=== PATIENT | female | born 1995 | race African-American/Black ===

== ENCOUNTER 2020-08-09 22:08 | Inpatient (IN) | payer OTHER ==
[~2020-08-09] VITALS: Ht 170.2 cm; Wt 108.0 kg
[2020-08-09] MEDS: ceFAZolin SODIUM 1 GM in D5W 50 ML IV SCH (23:40)
[2020-08-09] MEDS: D5/0.45 NS 1,000 ML IV SCH (23:40)
[2020-08-09] MEDS ORDERED: ceFAZolin SODIUM 1 GM VIAL ONE (23:45)
[2020-08-10] MEDS ORDERED: CALCIUM CARBONATE 500 MG/ TAB.CHEW PO PRN ×2 (01:30→15:45)
[2020-08-10] MEDS ORDERED: ceFAZolin SODIUM 1 GM VIAL ONE (05:31)
[2020-08-10] MEDS: ceFAZolin SODIUM 1 GM in D5W 50 ML IV SCH ×3 (06:00→18:06)
[2020-08-10] MEDS: MORPHINE SULFATE 10 MG/ML VIAL IVP PRN ×2 (09:36)
[2020-08-10] MEDS ORDERED: NALOXONE HCL 0.4 MG/ML AMP (NARCAN) IVP PRN (13:15)
[2020-08-10] MEDS: HYDROcodone/ACETAMIN 5-325 MG TAB (NORCO/ VICODIN) PO PRN (21:20)
[2020-08-11] MEDS: ceFAZolin SODIUM 1 GM in D5W 50 ML IV SCH ×4 (00:01→23:45)
[2020-08-11] MEDS: HYDROcodone/ACETAMIN 5-325 MG TAB (NORCO/ VICODIN) PO PRN ×3 (01:23→10:30)
[2020-08-11] MEDS: D5/0.45 NS 1,000 ML IV SCH ×2 (06:17→20:44)
[2020-08-12] MEDS: ceFAZolin SODIUM 1 GM in D5W 50 ML IV SCH ×2 (05:34→12:00)
[2020-08-12] MEDS ORDERED: ceFAZolin SODIUM 1 GM VIAL ONE (12:12)
== END 2020-08-12 12:45 | disposition home or self-care (01) | DRG 833 ==
LOC: SPU 22:08 → OBSVTOIN 08-11 15:00
PROVIDERS: ADMIT Specialist; ATTEND Specialist
DX: O23.43 Unspecified infection of urinary tract in pregnancy, third trimester (principal); Z3A.29 29 weeks gestation of pregnancy
CPT/HCPCS: 59025; 76770; 76805-TC; 81002-TC; G0378; J0690; J2270; J7060

== ENCOUNTER 2020-10-03 16:35 | Observation (INO) | payer OTHER ==
[2020-10-07] MEDS ORDERED: OXYTOCIN/0.9 % SODIUM CHLORIDE 1,000 ML IV ONE (08:42)
== END 2020-10-03 18:20 | disposition home or self-care (01) ==
LOC: SPU 16:35
PROVIDERS: ADMIT Specialist; ATTEND Specialist
DX: O36.8130 Decreased fetal movements, third trimester, not applicable or unspecified (principal); Z3A.37 37 weeks gestation of pregnancy
CPT/HCPCS: 59025; 76819; 81002; G0378

== ENCOUNTER 2021-02-24 16:31 | Emergency (ER) | payer OTHER ==
[~2021-02-24] VITALS: Ht 170.2 cm; Wt 90.7 kg
[2021-02-24 16:39] VITALS: BP_SYST 125
[2021-02-24 18:59] LABS: BASOPHILS % (AUTO) 0.3 % (0.0-2.0); EOSINOPHILS % (AUTO) 0.4 % (0.0-4.0); HEMATOCRIT 44.2 % (36-48); HEMOGLOBIN 14.9 g/dL (12.0-16.0); LYMPHOCYTES % (AUTO) 28.4 % (20.5-51.5); MEAN CORPUSCULAR HEMOGLOBIN 28 pg (27-31); MEAN CORPUSCULAR HGB CONC 34 % (32-36); MEAN CORPUSCULAR VOLUME 84 fL (79.0-98.0); MONOCYTES # (AUTO) 0.9 K/uL (0.0-1.0); NEUTROPHILS # (AUTO) 6.5 K/uL (1.8-7.7); NEUTROPHILS % (AUTO) 61.9 % (40.0-70.0); PLATELET COUNT (AUTO) 297 K/uL (130-430); RED BLOOD CELL COUNT(AUTO) 5.25 MIL/uL (4.2-6.2); RED CELL DISTRIBUTION WIDTH 14.6 % (9.0-15.0); WHITE BLOOD COUNT (AUTO) 10.5 K/uL (4.8-10.8)
[2021-02-24 19:13] LABS: CALCIUM 9.2 mg/dL (8.4-11.0); CREATININE 0.99 mg/dL (0.55-1.30); POTASSIUM 3.6 mmol/L (3.5-5.1); PROTHROMBIN TIME 10.3 SECS (9.5-12.5)
[2021-02-24 19:35] LABS: TOTAL BILIRUBIN 0.2 mg/dL (0.0-1.0)
[2021-02-24 19:58] VITALS: BP_SYST 122
== END 2021-02-24 19:58 | disposition home or self-care (01) ==
LOC: SED 16:31
DX: N93.9 Abnormal uterine and vaginal bleeding, unspecified (principal)
CPT/HCPCS: 36415; 76830-TC; 76857; 80053; 84702; 85025; 85610-TC; 85730-TC; 99284